=== PATIENT | female | born 1980 | race Two or more races ===

== ENCOUNTER 2018-07-27 01:07 | Emergency (ER) | payer SELFPAY ==
[~2018-07-27] VITALS: Ht 157.5 cm; Wt 65.8 kg
[2018-07-27 02:30] LABS: BASO % 1 % (0-3); EOS # 0.2 x10^3/uL (0.0-0.7); EOS % 3 % (0-3); HEMATOCRIT 39.2 % (36.0-47.0); HEMOGLOBIN 13.6 g/dL (12.0-15.5); LYMPH # 1.5 x10^3/uL (1.0-4.8); LYMPH % 19 % (24-48); MEAN CORPUSCULAR HEMOGLOBIN 33 pg (25-35); MEAN CORPUSCULAR HGB CONC 35 g/dL (31-37); MEAN CORPUSCULAR VOLUME 95 fL (79-100); MONO # 0.4 x10^3/uL (0.0-1.1); MONO % 5 % (0-9); NEUT # 5.8 x10^3uL (1.8-7.7); NEUT % 73 % (31-73); PLATELET COUNT 222 x10^3/uL (140-400); RED BLOOD COUNT 4.14 x10^6/uL (3.50-5.40); RED CELL DISTRIBUTION WIDTH 13.2 % (11.5-14.5); WHITE BLOOD COUNT 7.9 x10^3/uL (4.0-11.0)
[2018-07-27] MEDS ORDERED: ONDANSETRON PF 4 MG/2 ML VIAL. IV ONE (02:30)
[2018-07-27] MEDS ORDERED: fentaNYL PF VIAL 100 MCG/2 ML VIAL IV ONE (02:30)
[2018-07-27] MEDS ORDERED: IV NORMAL SALINE 1000ML BAG 1,000 ML IV ONE (02:30)
[2018-07-27 02:50] VITALS: BP 111/56
[2018-07-27 02:53] LABS: CALCIUM 9.1 mg/dL (8.5-10.1); CREATININE 0.9 mg/dL (0.6-1.0); GFR 70.8; POTASSIUM 3.8 mmol/L (3.5-5.1)
[2018-07-27 02:59] LABS: BILIRUBIN,URINE NEGATIVE (NEG); CLARITY,URINE CLOUDY; COLOR,URINE YELLOW; NITRITE,URINE NEGATIVE (NEG); PH,URINE 7.5; PROTEIN,URINE NEGATIVE (NEG-TRACE); UROBILINOGEN,URINE 0.2 mg/dL (0.2 mg/dL)
[2018-07-27 03:06] LABS: ALBUMIN/GLOBULIN RATIO 1.2 (1.0-1.7); TOTAL BILIRUBIN 1.1 mg/dL (0.2-1.0); TOTAL PROTEIN 7.3 g/dL (6.4-8.2)
[2018-07-27 03:07] LABS: BACTERIA,URINE MANY /HPF (0-FEW); RBC,URINE 20-40 /HPF (0-2); SQUAMOUS EPITHELIAL CELL,UR MANY /LPF
[2018-07-27] MEDS ORDERED: CONTRAST GIVEN. MC PRN (03:30)
[2018-07-27] MEDS ORDERED: IOHEXOL 300 MG/ML 100ML VIAL. IV ONE (03:45)
--- NOTE | 2018-07-27 04:04 | PHYS DOC ---
Past Medical History Past Medical History: No Pertinent History Past Surgical History: Additional Past Surgical Histo: CYST REMOVAL RIGHT WRIST. Alcohol Use: Occasionally Drug Use: None Adult General Chief Complaint Chief Complaint: ABDOMINAL PAIN HPI HPI 37-year-old otherwise healthy female presents with 4-5 hour history of progressive abdominal pain. She states the pain initially was at the top of her abdomen but now spreads all across her abdomen. She denies any nausea or vomiting. She does have some associated back pain. She denies any fever chills or sweats. She denies any dysuria or gross hematuria. She states she's never had anything like this before. She states she had not eaten prior to the onset of her symptoms.[] Review of Systems Review of Systems Constitutional: Denies fever or chills [] Eyes: Denies change in visual acuity, redness, or eye pain [] HENT: Denies nasal congestion or sore throat [] Respiratory: Denies cough or shortness of breath [] Cardiovascular: No additional information not addressed in HPI [] GI: Per history of present illness[] : Denies dysuria or hematuria [] Musculoskeletal: Denies back pain or joint pain [] Integument: Denies rash or skin lesions [] Neurologic: Denies headache, focal weakness or sensory changes [] Endocrine: Denies polyuria or polydipsia [] All other systems were reviewed and found to be within normal limits, except as documented in this note. Current Medications Current Medications Current Medications Medications (Trade) Dose Ordered Sig/Mahamed Start Time Stop Time Status Last Admin Dose Admin Fentanyl Citrate (Fentanyl 2ml Vial) 50 mcg 1X ONCE 07/27/18 02:30 07/27/18 02:31 DC 07/27/18 02:45 50 MCG Info (CONTRAST GIVEN -- Rx MONITORING) 1 each PRN DAILY PRN 07/27/18 03:30 07/29/18 03:29 Iohexol (Omnipaque 300 Mg/ml) 75 ml 1X ONCE 07/27/18 03:45 07/27/18 03:46 DC Ondansetron HCl (Zofran) 4 mg 1X ONCE 07/27/18 02:30 07/27/18 02:31 DC 07/27/18 02:45 4 MG Sodium Chloride 1,000 ml @ 1,000 mls/hr 1X ONCE 07/27/18 02:30 07/27/18 03:29 DC 07/27/18 02:46 1,000 MLS/HR Allergies Allergies Allergies Coded Allergies Type Severity Reaction Last Updated Verified No Known Drug Allergies 07/27/18 No Physical Exam Physical Exam Constitutional: Well developed, well nourished, mild to moderate distress, non- toxic appearance. [] HENT: Normocephalic, atraumatic, bilateral external ears normal, oropharynx moist, no oral exudates, nose normal. [] Eyes: PERRLA, EOMI, conjunctiva normal, no discharge. [] Neck: Normal range of motion, no tenderness, supple, no stridor. [] Cardiovascular:Heart rate regular rhythm, no murmur [] Lungs & Thorax: Bilateral breath sounds clear to auscultation [] Abdomen: Soft good bowel sounds in all 4 quadrants mildly tender to palp diffusely no rebound or guarding. [] Skin: Warm, dry, no erythema, no rash. [] Back: No tenderness, no CVA tenderness. [] Extremities: No tenderness, no cyanosis, no clubbing, ROM intact, no edema. [] Neurologic: Alert and oriented X 3, normal motor function, normal sensory function, no focal deficits noted. [] Psychologic: Anxious[] Current Patient Data Vital Signs Vital Signs Date Time Temp Pulse Resp B/P (MAP) Pulse Ox O2 Delivery O2 Flow Rate FiO2 07/27/18 02:45 18 100 Room Air 07/27/18 01:23 97.5 72 127/76 (93) 97.5 Lab Values Laboratory Tests Test 07/27/18 01:40 07/27/18 02:50 07/27/18 02:54 White Blood Count 7.9 x10^3/uL (4.0-11.0) Red Blood Count 4.14 x10^6/uL (3.50-5.40) Hemoglobin 13.6 g/dL (12.0-15.5) Hematocrit 39.2 % (36.0-47.0) Mean Corpuscular Volume 95 fL (79-100) Mean Corpuscular Hemoglobin 33 pg (25-35) Mean Corpuscular Hemoglobin Concent 35 g/dL (31-37) Red Cell Distribution Width 13.2 % (11.5-14.5) Platelet Count 222 x10^3/uL (140-400) Neutrophils (%) (Auto) 73 % (31-73) Lymphocytes (%) (Auto) 19 % (24-48) L Monocytes (%) (Auto) 5 % (0-9) Eosinophils (%) (Auto) 3 % (0-3) Basophils (%) (Auto) 1 % (0-3) Neutrophils # (Auto) 5.8 x10^3uL (1.8-7.7) Lymphocytes # (Auto) 1.5 x10^3/uL (1.0-4.8) Monocytes # (Auto) 0.4 x10^3/uL (0.0-1.1) Eosinophils # (Auto) 0.2 x10^3/uL (0.0-0.7) Basophils # (Auto) 0.0 x10^3/uL (0.0-0.2) Sodium Level 140 mmol/L (136-145) Potassium Level 3.8 mmol/L (3.5-5.1) Chloride Level 103 mmol/L (98-107) Carbon Dioxide Level 24 mmol/L (21-32) Anion Gap 13 (6-14) Blood Urea Nitrogen 15 mg/dL (7-20) Creatinine 0.9 mg/dL (0.6-1.0) Estimated GFR (Cockcroft-Gault) 70.8 BUN/Creatinine Ratio 17 (6-20) Glucose Level 119 mg/dL (70-99) H Calcium Level 9.1 mg/dL (8.5-10.1) Total Bilirubin 1.1 mg/dL (0.2-1.0) H Aspartate Amino Transferase (AST) 12 U/L (15-37) L Alanine Aminotransferase (ALT) 21 U/L (14-59) Alkaline Phosphatase 48 U/L (46-116) Total Protein 7.3 g/dL (6.4-8.2) Albumin 4.0 g/dL (3.4-5.0) Albumin/Globulin Ratio 1.2 (1.0-1.7) Lipase 133 U/L (73-393) Urine Collection Type Unknown Urine Color Yellow Urine Clarity Cloudy Urine pH 7.5 Urine Specific [place] 1.020 Urine Protein Negative mg/dL (NEG-TRACE) Urine Glucose (UA) Negative mg/dL (NEG) Urine Ketones (Stick) Negative mg/dL (NEG) Urine Blood Negative (NEG) Urine Nitrite Negative (NEG) Urine Bilirubin Negative (NEG) Urine Urobilinogen Dipstick 0.2 mg/dL (0.2 mg/dL) Urine Leukocyte Esterase Small (NEG) Urine RBC 20-40 /HPF (0-2) Urine WBC 1-4 /HPF (0-4) Urine Squamous Epithelial Cells Many /LPF Urine Bacteria Many /HPF (0-FEW) Urine Mucus Mod /LPF POC Urine HCG, Qualitative Hcg negative (Negative) Laboratory Tests 07/27/18 01:40 Laboratory Tests 07/27/18 01:40 EKG EKG [] Radiology/Procedures Radiology/Procedures [] Impressions: STATUS: REG ERORD. PHYSICIAN: MAJOR ALEJANDRO DO REASON: abd pain PROCEDURE: CT ABD PELV W/ IV CONTRST ONLY INDICATION: Abdomen pain COMPARISON: None. TECHNIQUE: Axial CT images obtained through the abdomen and pelvis with contrast. One or more of the following individualized dose reduction techniques were utilized for this examination: 1. Automated exposure control; 2. Adjustment of the mA and/or kV according to patient size; 3. Use of iterative reconstruction technique. FINDINGS: There is a couple of nodules at the right lung base measuring up to about 4 mm. Abdominal aorta is not aneurysmal. No intrahepatic bile duct dilation. Gallbladder is contracted. No definite peripancreatic fluid collection. Spleen is unremarkable. No left-sided hydronephrosis. No right-sided hydronephrosis. Urinary bladder has small amount urine within it at time of exam. Uterus is flexed anteriorly. Suspect small free fluid in the pelvis. There is some dilatation of the colon with stool within. The appendix is poorly seen secondary to multiple loops of small bowel within the right lower quadrant and lack of oral contrast. IMPRESSION: 1. There is some dilatation of the colon with stool and air within measuring up to approximately 55 mm. 2. No hydronephrosis. 3. The appendix is not visualized secondary to multiple loops of small bowel within the right lower quadrant without oral contrast within. Course & Med Decision Making Course & Med Decision Making Pertinent Labs and Imaging studies reviewed. (See chart for details) [ED course: Evaluation reveals a 37-year-old female with abdominal pain. Her laboratory studies were unremarkable. Her CT scan did not show any evidence of an acute process. Her urine did show evidence of blood leukocyte Estrace and some bacteria. Go ahead and treat her with some antibiotics. Patient can go home.] [place] Disclaimer Dragon Disclaimer This electronic medical record was generated, in whole or in part, using a voice recognition dictation system. Departure Departure Impression: Primary Impression: Abdominal pain Additional Impression: Urinary tract infection Disposition: HOME, SELF-CARE Condition: STABLE Referrals: UNKNOWN PCP NAME (PCP) Patient Instructions: Abdominal Pain, Urinary Tract Infection Additional Instructions: Return to the emergency department with any new or concerning symptoms Scripts Phenazopyridine Hcl (PYRIDIUM) 200 Mg Tablet 200 MG PO Q8HRS PRN for DYSURIA, #10 TAB Prov: MAJOR ALEJANDRO DO 07/27/18 Nitrofurantoin Monohyd/M-Cryst (MACROBID 100 MG CAPSULE) 100 Mg Capsule 1 CAP PO BID for UTI, #10 CAP Prov: MAJOR ALEJANDRO DO 07/27/18 Problem Qualifiers Primary Impression: Abdominal pain Abdominal location: lower abdomen, unspecified Qualified Codes: R10.30 - Lower abdominal pain, unspecified Additional Impression: Urinary tract infection Urinary tract infection type: site unspecified Hematuria presence: with hematuria Qualified Codes: N39.0 - Urinary tract infection, site not specified; R31.9 - Hematuria, unspecified MAJOR ALEJANDRO DO Jul 27, 2018 04:04
--- NOTE | 2018-07-27 04:32 | RAD ---
INDICATION: Abdomen pain COMPARISON: None. TECHNIQUE: Axial CT images obtained through the abdomen and pelvis with contrast. One or more of the following individualized dose reduction techniques were utilized for this examination: 1. Automated exposure control; 2. Adjustment of the mA and/or kV according to patient size; 3. Use of iterative reconstruction technique. FINDINGS: There is a couple of nodules at the right lung base measuring up to about 4 mm. Abdominal aorta is not aneurysmal. No intrahepatic bile duct dilation. Gallbladder is contracted. No definite peripancreatic fluid collection. Spleen is unremarkable. No left-sided hydronephrosis. No right-sided hydronephrosis. Urinary bladder has small amount urine within it at time of exam. Uterus is flexed anteriorly. Suspect small free fluid in the pelvis. There is some dilatation of the colon with stool within. The appendix is poorly seen secondary to multiple loops of small bowel within the right lower quadrant and lack of oral contrast. IMPRESSION: 1. There is some dilatation of the colon with stool and air within measuring up to approximately 55 mm. 2. No hydronephrosis. 3. The appendix is not visualized secondary to multiple loops of small bowel within the right lower quadrant without oral contrast within. Electronically signed by: Norm Beach MD (07/27/2018 4:29 AM) [id number]
[2018-07-27] MEDS ORDERED: NITR100C62 PO (04:47)
[2018-07-27] MEDS ORDERED: PHEN-318 PO (04:47)
== END 2018-07-27 05:05 | disposition home or self-care (01) ==
LOC: ER 01:07
DX: N39.0 Urinary tract infection, site not specified (principal); R10.84 Generalized abdominal pain; K59.39 Other megacolon; M54.9 Dorsalgia, unspecified; Z98.890 Other specified postprocedural states
CPT/HCPCS: 36415; 74177; 80053; 81001; 81025; 83690; 85025; 87086; 96374; 96375; 99285; J2405; J3010; J7030